=== PATIENT | female | born 1990 | race Caucasian/White ===

== ENCOUNTER → 2017-06-14 | Day surgery (SDC) | payer OTHER ==
[~2017-06-14] MED LIST: ACETAMINOPHEN 1000 MG/100 ML 100 ML IV ONE; ACETAMINOPHEN/HYDROcodone 325 MG/5 MG TAB ONE; APREPITANT 40 MG CAP ONE; BACITRACIN IM FOR SOLN 50,000 UNIT VIAL ONE; BUPIVACAINE/EPINEPHRINE 0.25% 50 ML VIAL ONE; CARB100C PO; CITA20 PO; CLIN1CAP6 PO; CLOB1SUS PO; FOLI1TAB PO; GENTAMICIN SULFATE 80 MG/2 ML VIAL ONE; KETOROLAC TROMETHAMINE 30 MG/ML (IVP) VIAL IV PUSH ONE; LIDOCAINE 1%/EPINEPHrine 1:200,000 PF SOLN 30 ML VIAL ONE; MEDR150P IM; MIDAZOLAM HCL 2 MG/2 ML VIAL ONE; MUPI2%T TOP; ONDANSETRON HCL 4 MG/2 ML VIAL IV PUSH ONE; PROPOFOL 200 MG/20 ML AMP IV ONE; SODIUM CHLOR 0.9% 1000 ML BAG IV ONE; SODIUM CHLORIDE 0.9% 20 ML VIAL ONE; TEGR400T PO; XANA2TAB PO; [UNRECOGNIZED DRUG - REMARK] SL; ceFAZolin INJ 1,000 MG VIAL ONE
--- NOTE | 2017-06-14 08:34 | TN ---
cc: KVNG SMITH M.D. DATE OF SURGERY: 06/14/2017 PREOPERATIVE DIAGNOSIS Bilateral breast hypoplasia. POSTOPERATIVE DIAGNOSIS Bilateral breast hypoplasia. PROCEDURE Bilateral augmentation mammoplasty. SURGEON Kvng Smith MD [facility] ANESTHESIA LMA general plus total of 60 ccs of 1% lidocaine with epinephrine mixed with 0.25% Marcaine on a 2:1 ratio. COMPLICATIONS None. DRAINS None. IMPLANT DATA PLACEMENT AND TECHNIQUE Inframammary retropectoral plane, cohesive gels N Phil Peterson, volume 310 ccs, serial number of the right breast implant device [id number], and to the left [id number]. PROCEDURE IN DETAIL She was properly consented, marked, properly anesthetized. The skin was sterilized with Betadine solution and sterile draping applied and the local administrated. Through a 3-1/2 to 4 cm inframammary incision the retropectoral plane was properly developed and the inferomedial fibers released. After assuring meticulous hemostasis irrigation with triple antibiotic solution was carried out. Isolation of the NAC from the beginning of the case with Tegaderm and now to the incision was carried out. The implant was introduced utilizing no-touch technique. The contralateral side was approached exactly in the same manner. The patient was sat up assuring best symmetry possible. The wound was closed in multiple 2-0 Monocryl suture layers in the breast parenchyma, Heidi's fascia, dermis and subcu. After Mastisol Steri-Strips were applied. And after that absorbent dressings as well as a snug brassiere. Overall, the patient tolerated the procedure well. She was awakened, extubated in the operating room and transferred back to the postanesthesia care unit in stable condition. No complications were appreciated. The patient tolerated the procedure fairly well. MD NIMCO Cai/DANITZA /8:11 AM /8:21 AM
== END | disposition home or self-care (01) ==
LOC: ESDC 06:37
PROVIDERS: ATTEND Plastic Surgery
DX: Z41.1 Encounter for cosmetic surgery (principal)
CPT/HCPCS: 00402; 19325; C1789; J0131; J0690; J1580; J1885; J2250; J2405; J3010; J7030; J8501